=== PATIENT | male | born 1955 | race Caucasian/White ===

== ENCOUNTER → 2020-04-29 | Day surgery (SDC) | payer MEDICARE, OTHER ==
[2020-04-26 14:33] LABS: BASOPHILS # (AUTO) 0.1 (0.0-0.1); BASOPHILS % 0.7 % (0.0-1.0); EOSINOPHILS # (AUTO) 0.2 (0.0-0.4); EOSINOPHILS % 2.9 % (0.0-6.0); HEMATOCRIT 46.3 % (38.2-49.6); HEMOGLOBIN 15.3 g/dL (14.0-18.0); LYMPHOCYTES # (AUTO) 1.7 (1.0-3.2); LYMPHOCYTES % 23.2 % (18.0-39.1); MEAN CORPUSCULAR HEMOGLOBIN 30.8 pg (28-32); MEAN CORPUSCULAR VOLUME 93.2 fL (81-99); MONOCYTES # (AUTO) 0.5 (0.2-0.8); MONOCYTES % 6.3 % (4.4-11.3); NEUTROPHILS # (AUTO) 4.8 (2.1-6.9); NEUTROPHILS % 66.2 % (38.7-80.0); PLATELET COUNT 233 x10e3/uL (140-360); RED BLOOD COUNT 4.97 x10e6/uL (4.3-5.7); RED CELL DISTRIBUTION WIDTH 12.5 % (11.7-14.4)
[2020-04-26 14:50] LABS: ALBUMIN 4.1 g/dL (3.5-5.0); ALBUMIN/GLOBULIN RATIO 1.3 (0.8-2.0); ANION GAP 14.9 mmol/L (8-16); CALCIUM 9.2 mg/dL (8.4-10.2); CREATININE, SERUM 1.5 mg/dL (0.72-1.25); POTASSIUM 4.9 mmol/L (3.5-5.1)
[~2020-04-29] MED LIST: ACETAMINOPHEN/CODEINE 300MG - 30MG TAB ONE; ASPIRIN81 MG PO; B&O 60MG R/S 60 MG SUPP PR ONE; CEFTRIAXONE SOD 1 GM/NS 50 ML 50 ML IV ONE; CYMBALTA30 MG PO; GENTAMICIN 80MG/NS 100 ML 100 ML IV ONE; HYDROMORPHONE 1MG/1ML INJ ONE; IMODIUM2 MG PO; IOPAMIDOL 300MG/ML 50ML INFUS..BTL IV ONE; LANTUS100 UNITS/ SQ; LIDOCAINE HCL 2% JELLY 5 ML TUBE ONE; LIDOCAINE HCL 2% LOCAL INJ 5 ML SDV VIAL INJ ONE; LIPITOR10 MG PO; LISINOPRIL10 MG PO; MEPERIDINE HCL INJ 25 MG/ML VIAL ONE; NOVOLOG SQ; NOVOLOG100 UNIT/1 SC; ONDANSETRON HCL INJ 2MG/ML 2ML 2 MG/ML VIAL ONE; PRAVACHOL40 MG PO; PROGRAF1 MG PO; PROGRAF5 MG PO; PROPOFOL IV EMULSION 10 MG/ML 20 ML VIAL ONE; SEVOFLURANE INHAL SOLN 250 ML PEN BTL ONE; VALACYCLOVIR PO; VALACYCLOVIR500 MG PO; VIT D PO; ZESTRIL10 MG PO
[2020-04-29 10:30] VITALS: BP 134/80
== END | disposition home or self-care (01) ==
LOC: OR 07:09
PROVIDERS: ATTEND Urology
DX: N40.1 Benign prostatic hyperplasia with lower urinary tract symptoms (principal); N13.8 Other obstructive and reflux uropathy; E11.22 Type 2 diabetes mellitus with diabetic chronic kidney disease; I12.9 Hypertensive chronic kidney disease with stage 1 through stage 4 chronic kidney disease, or unspecified chronic kidney disease; N18.9 Chronic kidney disease, unspecified; Q62.5 Duplication of ureter; K62.89 Other specified diseases of anus and rectum; N32.89 Other specified disorders of bladder; I69.398 Other sequelae of cerebral infarction; H53.9 Unspecified visual disturbance; B19.20 Unspecified viral hepatitis C without hepatic coma; M47.819 Spondylosis without myelopathy or radiculopathy, site unspecified; Z01.810 Encounter for preprocedural cardiovascular examination; Z01.812 Encounter for preprocedural laboratory examination; Z01.818 Encounter for other preprocedural examination; Z20.822 Contact with and (suspected) exposure to COVID-19; Z79.4 Long term (current) use of insulin; Z79.82 Long term (current) use of aspirin; Z87.891 Personal history of nicotine dependence
CPT/HCPCS: 52005; C9740; 36415; 71046; 74420; 80053; 82948; 85025; 93005; C1758; J0696; J1170; J1580; J2001; J2175; J2405; L8699; U0002

== ENCOUNTER 2020-07-24 17:46 | Emergency (ER) | payer MEDICARE ==
[~2020-07-24] VITALS: Ht 170.2 cm; Wt 76.7 kg
[~2020-07-24 17:46] MED LIST changes: -ACETAMINOPHEN/CODEINE 300MG - 30MG TAB ONE; -B&O 60MG R/S 60 MG SUPP PR ONE; -CEFTRIAXONE SOD 1 GM/NS 50 ML 50 ML IV ONE; -GENTAMICIN 80MG/NS 100 ML 100 ML IV ONE; -HYDROMORPHONE 1MG/1ML INJ ONE; -IOPAMIDOL 300MG/ML 50ML INFUS..BTL IV ONE; -LIDOCAINE HCL 2% JELLY 5 ML TUBE ONE; -LIDOCAINE HCL 2% LOCAL INJ 5 ML SDV VIAL INJ ONE; -MEPERIDINE HCL INJ 25 MG/ML VIAL ONE; -ONDANSETRON HCL INJ 2MG/ML 2ML 2 MG/ML VIAL ONE; -PROPOFOL IV EMULSION 10 MG/ML 20 ML VIAL ONE; -SEVOFLURANE INHAL SOLN 250 ML PEN BTL ONE
[2020-07-24] MEDS ORDERED: ASPIRIN 81 MG CHEW TAB PO ONE (18:00)
[2020-07-24] MEDS: SODIUM CHLORIDE 0.9% 1000ML 1,000 ML IV STA ×2 (18:18→18:22)
[2020-07-24] MEDS ORDERED: ONDANSETRON HCL INJ 2MG/ML 2ML 2 MG/ML VIAL IV STA ×2 (18:21→19:20)
[2020-07-24] MEDS ORDERED: MORPHINE SULFATE INJ 4 MG/ML INJ 1ML IV STA ×2 (18:21→19:20)
[2020-07-24 18:23] LABS: BASOPHILS # (AUTO) 0.1 (0.0-0.1); BASOPHILS % 1.2 % (0.0-1.0); EOSINOPHILS # (AUTO) 0.2 (0.0-0.4); EOSINOPHILS % 4.9 % (0.0-6.0); HEMATOCRIT 42.1 % (38.2-49.6); HEMOGLOBIN 14.5 g/dL (14.0-18.0); LYMPHOCYTES % 25.2 % (18.0-39.1); MEAN CORPUSCULAR HEMOGLOBIN 31.7 pg (28-32); MEAN CORPUSCULAR HGB CONC 34.4 g/dL (31-35); MEAN CORPUSCULAR VOLUME 91.9 fL (81-99); MONOCYTES # (AUTO) 0.4 (0.2-0.8); MONOCYTES % 10.2 % (4.4-11.3); NEUTROPHILS # (AUTO) 2.4 (2.1-6.9); NEUTROPHILS % 57.8 % (38.7-80.0); PLATELET COUNT 230 x10e3/uL (140-360); RED BLOOD COUNT 4.58 x10e6/uL (4.3-5.7); RED CELL DISTRIBUTION WIDTH 12.4 % (11.7-14.4)
[2020-07-24] MEDS ORDERED: KETOROLAC TROMETHAMINE 30 MG/ML VIAL IV STA (18:28)
[2020-07-24 18:58] LABS: ALBUMIN 3.6 g/dL (3.5-5.0); ALBUMIN/GLOBULIN RATIO 1.3 (0.8-2.0); ANION GAP 15.7 mmol/L (8-16); CALCIUM 9.2 mg/dL (8.4-10.2); CREATININE, SERUM 1.62 mg/dL (0.72-1.25); POTASSIUM 4.7 mmol/L (3.5-5.1)
[2020-07-24 19:05] LABS: CREATINE KINASE MB 0.9 ng/mL (0-5.0)
[2020-07-24 20:22] VITALS: BP 135/65
== END 2020-07-24 20:25 | disposition home or self-care (01) ==
LOC: ER 18:00
DX: M79.622 Pain in left upper arm (principal); M25.512 Pain in left shoulder; X50.0XXA Overexertion from strenuous movement or load, initial encounter; M54.2 Cervicalgia; G89.29 Other chronic pain
CPT/HCPCS: 36415; 71045; 80053; 82550; 82553; 83880; 84484; 85025; 93005; 99284; J1885; J2270; J2405; J7030

== ENCOUNTER 2025-01-03 14:22 | Emergency (ER) | payer MEDICARE ==
[~2025-01-03] VITALS: Ht 180.3 cm; Wt 69.4 kg
[2025-01-03 14:37] VITALS: TEMP 98.6
[2025-01-03] MEDS: HYDROCODONE/APAP 7.5MG-325MG 1 EA TAB PO ONE (15:11)
[2025-01-03] MEDS: ONDANSETRON HCL 4 MG ORAL DISINTEGRATING TAB PO ONE (15:11)
[2025-01-03] MEDS: KETOROLAC TROMETHAMINE 30 MG/ML VIAL IM STA (15:37)
[2025-01-03] MEDS ORDERED: HYDROCODON-ACE1 EAC9 PO (16:56)
[2025-01-03] MEDS: HYDROMORPHONE 1MG/1ML INJ IM STA (17:01)
[2025-01-03] MEDS: TETANUS/DIPHTHERIA TOX ADULT 0.5 ML SYR IM ONE (17:01)
[2025-01-03 17:08] VITALS: PULSE 72; RESP 18; O2SAT 100
== END 2025-01-03 17:08 | disposition home or self-care (01) ==
LOC: ER 14:46
DX: R07.89 Other chest pain (principal); S22.42XA Multiple fractures of ribs, left side, initial encounter for closed fracture; Y04.0XXA Assault by unarmed brawl or fight, initial encounter; Y92.89 Other specified places as the place of occurrence of the external cause; I10 Essential (primary) hypertension; E11.9 Type 2 diabetes mellitus without complications; E78.5 Hyperlipidemia, unspecified; M54.2 Cervicalgia; G89.29 Other chronic pain; Z94.4 Liver transplant status
CPT/HCPCS: 71250; 90471; 90714; 93005; 99283; J1171; J1885; Q0162